=== PATIENT | female | born 1985 | race Caucasian/White ===

== ENCOUNTER 2020-09-14 11:58 | Emergency (ER) | payer OTHER ==
[2020-09-14 12:10] VITALS: TEMP 98; BMI 33.4
[2020-09-14 12:36] VITALS: BP 115/84; PULSE 100
[2020-09-14] MEDS ORDERED: DIPHTH,PERTUSS(ACELL),TET 0.5 ML DISP.SYRIN IM ONE ×3 (12:38→12:45)
[2020-09-14] MEDS ORDERED: IBUPROFEN 600 MG TABLET (FP) PO ONE ×2 (12:38→12:44)
== END 2020-09-14 13:56 | disposition home or self-care (01) ==
LOC: JERFT 11:58
PROC: 0JQ10ZZ Repair Face Subcutaneous Tissue and Fascia, Open Approach (ICD-10-PCS; principal; 2020-09-14)
PROC: 3E0234Z Introduction of Serum, Toxoid and Vaccine into Muscle, Percutaneous Approach (ICD-10-PCS; 2020-09-14)
DX: S01.01XA Laceration without foreign body of scalp, initial encounter (principal)
CPT/HCPCS: 70450-TC; 90471; 90715; 99285-25

== ENCOUNTER 2020-09-21 14:08 | Emergency (ER) | payer OTHER ==
[2020-09-21 14:13] VITALS: BP 126/84; PULSE 105; TEMP 98; BMI 41.2
== END 2020-09-21 15:19 | disposition home or self-care (01) ==
LOC: JERFT 14:08 → JER 14:08 → JERFT 15:19
DX: Z48.02 Encounter for removal of sutures (principal)
CPT/HCPCS: 99281-25

== ENCOUNTER 2023-04-09 08:08 | Emergency (ER) | payer OTHER ==
[2023-04-09 08:27] VITALS: BMI 43.9
[2023-04-09] MEDS ORDERED: SODIUM CHLORIDE 0.9% 500 ML INFUS.BAG IV ONE (10:02)
[2023-04-09] MEDS ORDERED: KETOROLAC TROMETHAMINE 30 MG/1 ML VIAL IVPUSH ONE (10:04)
[2023-04-09] MEDS ORDERED: METOCLOPRAMIDE HCL INJECTION 10 MG/2 ML VIAL IVPB ONE (10:04)
[2023-04-09] MEDS ORDERED: METOCLOPRAMIDE HCL INJECTION 10 MG/2 ML VIAL ONE (10:24)
[2023-04-09] MEDS ORDERED: KETOROLAC TROMETHAMINE 30 MG/1 ML VIAL ONE (10:24)
[2023-04-09 10:53] LABS: BASO % 0.4 % (0-2.0); EOS % 2.2 % (0-4.5); HEMATOCRIT 39.1 % (32.4-45.2); HEMOGLOBIN 13.1 GM/dL (10.7-15.3); LYMPH % 20.6 % (8-40); MCH 28.9 pg (25.7-33.7); MCHC 33.5 g/dl (32.0-36.0); MEAN CELL VOLUME 86.2 fl (80-96); MEAN PLT VOLUME 8.1 fl (7.5-11.1); MONO % 5.2 % (3.8-10.2); NEUT % 71.6 % (42.8-82.8); PLATELET COUNT 260 10^3/uL (134-434); RBC 4.53 M/mm3 (3.60-5.2); RDW 13.6 % (11.6-15.6); WHITE BLOOD COUNT 9.8 K/mm3 (4.0-10.0)
[2023-04-09 11:30] LABS: THROAT:GRP A STREP NOT DETECTED (NOTDETECTED)
[2023-04-09 11:47] LABS: POTASSIUM 3.8 mmol/L (3.5-5.1)
[2023-04-09 11:49] LABS: CALCIUM 8.6 mg/dL (8.5-10.1)
[2023-04-09 11:50] LABS: ALBUMIN 3.8 g/dl (3.4-5.0); BLOOD UREA NITROGEN 10.9 mg/dL (7-18)
[2023-04-09 11:53] LABS: CREATININE 0.9 mg/dL (0.55-1.3)
[2023-04-09 11:54] LABS: TOT PROT 8.4 g/dl (6.4-8.2)
[2023-04-09 11:55] LABS: BILIRUBIN,TOTAL 0.5 mg/dL (0.2-1)
[2023-04-09 12:39] VITALS: BP 106/73; PULSE 73; RESP 17; TEMP 97.4
== END 2023-04-09 12:50 | disposition home or self-care (01) ==
LOC: JER 08:08
PROC: 3E0333Z Introduction of Anti-inflammatory into Peripheral Vein, Percutaneous Approach (ICD-10-PCS; principal; 2023-04-09)
PROC: 3E033GC Introduction of Other Therapeutic Substance into Peripheral Vein, Percutaneous Approach (ICD-10-PCS; 2023-04-09)
DX: U07.1 COVID-19 (principal); R09.81 Nasal congestion; G43.909 Migraine, unspecified, not intractable, without status migrainosus; R07.0 Pain in throat; R05.9 Cough, unspecified; M79.10 Myalgia, unspecified site; R50.81 Fever presenting with conditions classified elsewhere; R07.9 Chest pain, unspecified; R06.02 Shortness of breath; R04.2 Hemoptysis; R11.10 Vomiting, unspecified
CPT/HCPCS: 0241U-QW; 36415; 71046-TC-FY; 80053; 84703; 85025; 87651; 99284-25